=== PATIENT | female | born 1970 | race Hispanic/Latino ===

== ENCOUNTER 2016-10-24 20:41 | Emergency (ER) | payer SELFPAY ==
[2016-10-24 21:24] VITALS: BP 150/103
[2016-10-24 21:25] LABS: Basophils % (Auto) 0.8 % (0.0-1.8); Eosinophils % (Auto) 2.4 % (0.0-4.3); Hematocrit 43.3 % (30.3-42.9); Hemoglobin 14.7 gm/dl (10.1-14.3); Mean Corpuscular HGB Conc 34 % (30-34); Mean Corpuscular Hemoglobin 31 pg (28-32); Mean Corpuscular Volume 91 fl (79-97); Platelet Count 243 K/mm3 (140-440); Red Blood Count 4.74 M/mm3 (3.65-5.03); Red Cell Distribution Width 13.1 % (13.2-15.2); White Blood Count 8.6 K/mm3 (4.5-11.0)
[2016-10-24 21:33] LABS: Bacteria,Urine 1+ /HPF (Negative); Bilirubin,Urine NEG (Negative); Blood,Urine NEG (Negative); Ketones,Urine NEG (Negative); Leukocyte Esterase,Urine TR (Negative); Mucus,Urine 3+ /HPF; Nitrite,Urine NEG (Negative)
[2016-10-24 21:47] LABS: Anion Gap 18 mmol/L; BUN/Creatinine Ratio 14.44; Blood Urea Nitrogen 13 mg/dL (7-17); Calcium 9.6 mg/dL (8.4-10.2); Carbon Dioxide 25 mmol/L (22-30); Chloride 100.3 mmol/L (98-107); Glucose 104 mg/dL (65-100); Potassium 4.3 mmol/L (3.6-5.0); Sodium 139 mmol/L (137-145)
--- NOTE | 2016-10-25 07:52 | XRay Report ---
ROUTINE CHEST, TWO VIEWS: HISTORY: Shortness of breath. The trachea, heart, mediastinal contour, lung merchant and bony thorax are unremarkable. IMPRESSION: Unremarkable chest x-ray.
== END 2016-10-24 23:00 | disposition left against medical advice (07) ==
LOC: ED 20:41
DX: R07.9 Chest pain, unspecified (principal); R06.02 Shortness of breath; Z53.21 Procedure and treatment not carried out due to patient leaving prior to being seen by health care provider
CPT/HCPCS: 36415; 71020; 80048; 81001; 84484; 84703; 85025; 93005; 93010

== ENCOUNTER 2016-11-14 02:55 | Emergency (ER) | payer MEDICAID ==
[2016-11-14] MEDS ORDERED: FLEXERIL PO ONE (06:21)
[2016-11-14] MEDS ORDERED: TORADOL IM ONE (06:22)
--- NOTE | 2016-11-14 06:26 | Emergency Department Report ---
HPI - General Chief Complaint: Extremity Injury, Lower Time Seen by Provider: 11/14/16 06:08 - HPI HPI: She is a 46-year-old female with a history of hypertension on controlled with medication who presents to ED complaining of left foot pain and swelling 2 days. Patient states she did not have any traumatic injury to her foot. Patient states she has a history of arthritis. She describes them as throbbing, aching type pain localized to left foot. She denies injuries, bleeding, loss of sensation,, chest pain, shortness of breath, calf pain ED Past Medical Hx - Past Medical History Previous Medical History?: Yes Hx Hypertension: Yes Hx Psychiatric Treatment: Yes (Bipolar) Additional medical history: IBS, Hyperthyroid, RA. Obesity - Surgical History Past Surgical History?: Yes Hx Cholecystectomy: Yes Hx Appendectomy: Yes Additional Surgical History: Hyst - Social History Smoking Status: Never Smoker Substance Use Type: None - Medications Home Medications: Home Medications Medication Instructions Recorded Confirmed Last Taken Type Cyclobenzaprine [Flexeril 10 MG 10 mg PO QHS #20 tablet 11/14/16 Unknown Rx TAB] Diclofenac Dr [Jerod Guzman] 75 mg PO BID #30 tablet 11/14/16 Unknown Rx ED Review of Systems ROS: Stated complaint: LT KNEE SWELLING W/PAIN Other details as noted in HPI Constitutional: denies: chills, fever Eyes: denies: eye pain, eye discharge, vision change ENT: denies: ear pain, throat pain Respiratory: denies: cough, shortness of breath, wheezing Cardiovascular: denies: chest pain, palpitations Endocrine: no symptoms reported Gastrointestinal: denies: abdominal pain, nausea, diarrhea Genitourinary: denies: urgency, dysuria, discharge Musculoskeletal: arthralgia. denies: back pain, joint swelling Skin: denies: rash, lesions Neurological: denies: headache, weakness, numbness, paresthesias, confusion, abnormal gait Psychiatric: denies: anxiety, depression Hematological/Lymphatic: denies: easy bleeding, easy bruising Physical Exam - Physical Exam Vital Signs: Vital Signs 11/14/16 03:01 Temperature 97.3 F L Pulse Rate 80 Respiratory 22 Rate Blood Pressure 163/101 Blood Pressure 163/101 [Right] O2 Sat by Pulse 99 Oximetry Physical Exam: GENERAL: Alert and oriented x3, no apparent distress, Normal Gait with a walker , atraumatic. HEAD: Head is normocephalic and a-traumatic. EYES: Extra ocular muscles are intact. Pupils are equal, round, and reactive to light and accommodation. LUNGS: Symetrical with respiration, No wheezing, no rales or crackles, CTAB. HEART: S1, S2 present, regular rate and rhythm without murmur, no rubs, no gallops. Non tender to palpation EXTREMITIES/MUSCULOSKELETAL: No cyanosis, clubbing, rash, lesions or edema. Full ROM bilaterally. UE/LE Pulses 2+ bilaterally. LE and UE 5+ strength bilaterally, straight leg raise negative bilaterally. Carleen sign Negative bilaterally, nontender to palpation NEUROLOGIC: The patient is cooperative with no focal neurologic deficits. Cranial nerves II through XII are grossly intact. Normal speech. Normal sensation in bilateral lower extremities, No loss of sensation, SKIN: Warm and dry, No lesions, No ulceration or induration present. ED Course Vital Signs 11/14/16 03:01 Temperature 97.3 F L Pulse Rate 80 Respiratory 22 Rate Blood Pressure 163/101 Blood Pressure 163/101 [Right] O2 Sat by Pulse 99 Oximetry ED Medical Decision Making - Medical Decision Making 46-year-old female presents with foot arthralgia ED course: Patient received Flexeril and Toradol and ED. Discussed patient to rest foot for the next couple of days. Discussed elevation 3 times a day. Discussed a follow-up with primary care physician Patient states she just moved back here from [place] and would like referrals. Referrals were given to patient Blood pressure reduced prior to discharge. Patient is sleeping comfortably in her bed with no distress or discomfort. Vital signs are normal. Patient understands instructions given Discussed the patient is symptoms worsen or new symptoms arise to return to the ED Critical care attestation.: If time is entered above; I have spent that time in minutes in the direct care of this critically ill patient, excluding procedure time. ED Disposition Clinical Impression: Arthralgia of foot, left Disposition: DC-01 TO HOME OR SELFCARE Is pt being admited?: No Does the pt Need Aspirin: No Condition: Stable Instructions: Rheumatoid Arthritis (ED), Arthralgia (ED) Prescriptions: Cyclobenzaprine [Flexeril 10 MG TAB] 10 mg PO QHS #20 tablet Diclofenac [Jerod Guzman] 75 mg PO BID #30 tablet Referrals: PRIMARY CARE, [Primary Care Provider] - 3-5 Days [facility] [Outside] - 3-5 Days [facility] [Outside] - 3-5 Days LUKE ROY MD [Staff Physician] - 3-5 Days NEVAEH GROSS MD [Referring] - 3-5 Days CHELA KAUFMAN MD [Referring] - 3-5 Days Forms: Accompanied Note, Work/School Release Form(ED) Time of Disposition: 07:07
[2016-11-14 07:16] VITALS: BP 152/89
== END 2016-11-14 07:16 | disposition home or self-care (01) ==
LOC: ED 02:55
DX: M79.672 Pain in left foot (principal); M79.89 Other specified soft tissue disorders; I10 Essential (primary) hypertension; E05.90 Thyrotoxicosis, unspecified without thyrotoxic crisis or storm
CPT/HCPCS: 96372; 99282; J1885

== ENCOUNTER 2016-11-25 16:05 | Emergency (ER) | payer MEDICAID ==
[2016-11-25 17:35] LABS: Hematocrit 40.7 % (30.3-42.9); Hemoglobin 13.9 gm/dl (10.1-14.3); Mean Corpuscular HGB Conc 34 % (30-34); Mean Corpuscular Hemoglobin 31 pg (28-32); Mean Corpuscular Volume 91 fl (79-97); Platelet Count 227 K/mm3 (140-440); Red Blood Count 4.46 M/mm3 (3.65-5.03); Red Cell Distribution Width 13.2 % (13.2-15.2); White Blood Count 7.8 K/mm3 (4.5-11.0)
[2016-11-25 17:46] LABS: Alanine Aminotransferase 40 units/L (7-56); Albumin 4.1 g/dL (3.9-5); Albumin/Globulin Ratio 1.3 %; Alkaline Phosphatase 68 units/L (35-129); Anion Gap 17 mmol/L; BUN/Creatinine Ratio 18.57; Blood Urea Nitrogen 13 mg/dL (7-17); Calcium 9.6 mg/dL (8.4-10.2); Carbon Dioxide 26 mmol/L (22-30); Chloride 102.5 mmol/L (98-107); Glucose 76 mg/dL (65-100); Potassium 4.9 mmol/L (3.6-5.0); Sodium 141 mmol/L (137-145); Total Protein 7.3 g/dL (6.3-8.2)
[2016-11-25 17:56] LABS: Urine Drugs of Abuse Note Disclamer
[2016-11-25 18:04] LABS: Bilirubin,Urine NEG (Negative); Blood,Urine NEG (Negative); Ketones,Urine NEG (Negative); Leukocyte Esterase,Urine NEG (Negative); Nitrite,Urine NEG (Negative); Protein,Urine <15 mg/dL mg/dL (Negative); Urobilinogen,Urine < 2.0 mg/dL (<2.0); WBC,Urine < 1.0 /HPF (0.0-6.0)
--- NOTE | 2016-11-25 19:09 | Emergency Department Report ---
History of Present Illness - General Chief Complaint: Overdose Stated Complaint: POSS OVERDOSE Time Seen by Provider: 11/25/16 18:40 Source: patient Mode of arrival: Ambulatory Limitations: No Limitations - History of Present Illness Initial Comments: 46-year-old female with a past history of hypertension, bipolar, IBS, hypothyroidism, obesity, rheumatoid arthritis and previous appendectomy, cholecystectomy, and hysterectomy presents to the hospital complains of suicidal ideation with attempt prior to arrival. Patient took an excessive amount prescribed temazepam 15 mg. Patient is unsure of how many tablets she took total but thinks at least 8 tablets were taken between 2 PM at 3:45 PM. Patient's intention was to kill herself in order to stop that emotional and physical pain. Patient has chronic bilateral knee pain left greater than right and states that she needs a knee replacement she can't afford. Patient denies hallucinations or homicidal ideation. Patient takes other psychiatric medication. Suicide attempt with at age 17. Patient states she is not on all her bipolar medication. - Related Data Previous Rx's Medication Instructions Recorded Last Taken Type Cyclobenzaprine [Flexeril 10 MG 10 mg PO QHS #20 tablet 11/14/16 Unknown Rx TAB] Diclofenac Dr [Jerod Guzman] 75 mg PO BID #30 tablet 11/14/16 Unknown Rx Allergies Allergy/AdvReac Type Severity Reaction Status Date / Time chloroxylenol Allergy Rash Verified 10/24/16 20:59 [From Perigiene] latex Allergy Angioedema Verified 11/25/16 16:34 phenazopyridine HCl Allergy Unknown Verified 11/25/16 16:34 [From Pyridium] tomato Allergy Rash Verified 10/24/16 20:59 ED Review of Systems ROS: Stated complaint: POSS OVERDOSE Other details as noted in HPI Comment: All other systems reviewed and negative Other: General: No fever or chills Eyes: No blurry vision or discharge HEENT: No throat pain Neck: No pain Respiratory: No shortness of breath, wheezing, or coughing Cardiovascular: No chest pain, palpitations, or syncope GI: No abdominal pain, nausea, vomiting, diarrhea, melena, or hematochezia : No dysuria or increased frequency Musculoskeletal: No back pain, no joint swelling Neurologic: Denies headache, focal weakness, or focal numbness Psychiatric: As per HPI Skin: No rash or lesions ED Past Medical Hx - Past Medical History Hx Hypertension: Yes Hx Psychiatric Treatment: Yes (Bipolar) Additional medical history: IBS, Hyperthyroid, RA. Obesity - Surgical History Hx Cholecystectomy: Yes Hx Appendectomy: Yes Additional Surgical History: Hyst - Social History Smoking Status: Current Every Day Smoker Substance Use Type: Marijuana - Medications Home Medications: Home Medications Medication Instructions Recorded Confirmed Last Taken Type Cyclobenzaprine [Flexeril 10 MG 10 mg PO QHS #20 tablet 11/14/16 11/25/16 Unknown Rx TAB] Diclofenac Dr [Voltaren Dr] 75 mg PO BID #30 tablet 11/14/16 11/25/16 Unknown Rx ED Physical Exam - General Limitations: No Limitations - Other Other exam information: General: No acute distress, Head: Atraumatic, normocephalic Eyes: Normal appearance, pupils equal and reactive to light HEENT: Moist mucous membranes, normal oropharynx Neck: Full range of motion, normal inspection, no midline tenderness CV: Regular rate and rhythm Respiratory: Clear to auscultation, no wheezes, rales, or crackles Abdomen: Soft, nondistended, nontender, normal bowel sounds, no rebound or guarding Extremities: Full range of motion, no deformity Back: Normal inspection, nontender, full range of motion Neurologic: Alert and oriented 3, cranial nerves grossly intact, no motor or sensory deficit Skin: No rash Psychiatric: Depressed affect ED Course Vital Signs 11/25/16 11/25/16 16:22 18:22 Temperature 97.5 F L 98.3 F Pulse Rate 86 93 H Respiratory 18 16 Rate Blood Pressure 147/92 Blood Pressure 99/62 [Left] O2 Sat by Pulse 97 97 Oximetry - Consultations Consultation #1: 11/25/16 19:08 I recontacted to control for clarification of recommended observation period. They suggested observation for 4-6 hours as required for medical clearance. Not 48 hours as initially documented by triage nurse. ED Medical Decision Making - Lab Data Result diagrams: 11/25/16 16:56 11/25/16 16:56 Lab Results 11/25/16 11/25/16 11/25/16 Range/Units 16:50 16:50 16:56 WBC 7.8 (4.5-11.0) K/mm3 RBC 4.46 (3.65-5.03) M/mm3 Hgb 13.9 (10.1-14.3) gm/dl Hct 40.7 (30.3-42.9) % MCV 91 (79-97) fl MCH 31 (28-32) pg MCHC 34 (30-34) % RDW 13.2 (13.2-15.2) % Plt Count 227 (140-440) K/mm3 Sodium (137-145) mmol/L Potassium (3.6-5.0) mmol/L Chloride (98-107) mmol/L Carbon Dioxide (22-30) mmol/L Anion Gap mmol/L BUN (7-17) mg/dL Creatinine (0.7-1.2) mg/dL Estimated GFR ml/min BUN/Creatinine Ratio % Glucose (65-100) mg/dL Calcium (8.4-10.2) mg/dL Total Bilirubin (0.1-1.2) mg/dL AST (5-40) units/L ALT (7-56) units/L Alkaline Phosphatase (35-129) units/L Troponin T (0.00-0.029) ng/mL Total Protein (6.3-8.2) g/dL Albumin (3.9-5) g/dL Albumin/Globulin Ratio % Urine Color Yellow (Yellow) Urine Turbidity Clear (Clear) Urine pH 5.0 (5.0-7.0) Ur Specific [place] 1.010 (1.003-1.030) Urine Protein <15 mg/dl (Negative) mg/dL Urine Glucose (UA) Neg (Negative) mg/dL Urine Ketones Neg (Negative) mg/dL Urine Blood Neg (Negative) Urine Nitrite Neg (Negative) Urine Bilirubin Neg (Negative) Urine Urobilinogen < 2.0 (<2.0) mg/dL Ur Leukocyte Esterase Neg (Negative) Urine WBC (Auto) < 1.0 (0.0-6.0) /HPF Urine RBC (Auto) 1.0 (0.0-6.0) /HPF U Epithel Cells (Auto) 2.0 (0-13.0) /HPF Salicylates (2.8-20.0) mg/dL Urine Opiates Screen Presumptive negative Urine Methadone Screen Presumptive negative Acetaminophen (10.0-30.0) ug/mL Ur Barbiturates Screen Presumptive negative Ur Phencyclidine Scrn Presumptive negative Ur Amphetamines Screen Presumptive negative U Benzodiazepines Scrn Presumptive negative Urine Cocaine Screen Presumptive negative U Marijuana (THC) Screen Presumptive negative Drugs of Abuse Note Disclamer Plasma/Serum Alcohol (0-0.07) gm% 11/25/16 11/25/16 11/25/16 Range/Units 16:56 16:56 16:56 WBC (4.5-11.0) K/mm3 RBC (3.65-5.03) M/mm3 Hgb (10.1-14.3) gm/dl Hct (30.3-42.9) % MCV (79-97) fl MCH (28-32) pg MCHC (30-34) % RDW (13.2-15.2) % Plt Count (140-440) K/mm3 Sodium 141 (137-145) mmol/L Potassium 4.9 (3.6-5.0) mmol/L Chloride 102.5 (98-107) mmol/L Carbon Dioxide 26 (22-30) mmol/L Anion Gap 17 mmol/L BUN 13 (7-17) mg/dL Creatinine 0.7 (0.7-1.2) mg/dL Estimated GFR > 60 ml/min BUN/Creatinine Ratio 18.57 % Glucose 76 (65-100) mg/dL Calcium 9.6 (8.4-10.2) mg/dL Total Bilirubin 0.80 (0.1-1.2) mg/dL AST 26 (5-40) units/L ALT 40 (7-56) units/L Alkaline Phosphatase 68 (35-129) units/L Troponin T (0.00-0.029) ng/mL Total Protein 7.3 (6.3-8.2) g/dL Albumin 4.1 (3.9-5) g/dL Albumin/Globulin Ratio 1.3 % Urine Color (Yellow) Urine Turbidity (Clear) Urine pH (5.0-7.0) Ur Specific [place] (1.003-1.030) Urine Protein (Negative) mg/dL Urine Glucose (UA) (Negative) mg/dL Urine Ketones (Negative) mg/dL Urine Blood (Negative) Urine Nitrite (Negative) Urine Bilirubin (Negative) Urine Urobilinogen (<2.0) mg/dL Ur Leukocyte Esterase (Negative) Urine WBC (Auto) (0.0-6.0) /HPF Urine RBC (Auto) (0.0-6.0) /HPF U Epithel Cells (Auto) (0-13.0) /HPF Salicylates < 0.3 L (2.8-20.0) mg/dL Urine Opiates Screen Urine Methadone Screen Acetaminophen (10.0-30.0) ug/mL Ur Barbiturates Screen Ur Phencyclidine Scrn Ur Amphetamines Screen U Benzodiazepines Scrn Urine Cocaine Screen U Marijuana (THC) Screen Drugs of Abuse Note Plasma/Serum Alcohol < 0.01 (0-0.07) gm% 11/25/16 11/25/16 Range/Units 16:56 16:56 WBC (4.5-11.0) K/mm3 RBC (3.65-5.03) M/mm3 Hgb (10.1-14.3) gm/dl Hct (30.3-42.9) % MCV (79-97) fl MCH (28-32) pg MCHC (30-34) % RDW (13.2-15.2) % Plt Count (140-440) K/mm3 Sodium (137-145) mmol/L Potassium (3.6-5.0) mmol/L Chloride (98-107) mmol/L Carbon Dioxide (22-30) mmol/L Anion Gap mmol/L BUN (7-17) mg/dL Creatinine (0.7-1.2) mg/dL Estimated GFR ml/min BUN/Creatinine Ratio % Glucose (65-100) mg/dL Calcium (8.4-10.2) mg/dL Total Bilirubin (0.1-1.2) mg/dL AST (5-40) units/L ALT (7-56) units/L Alkaline Phosphatase (35-129) units/L Troponin T < 0.010 (0.00-0.029) ng/mL Total Protein (6.3-8.2) g/dL Albumin (3.9-5) g/dL Albumin/Globulin Ratio % Urine Color (Yellow) Urine Turbidity (Clear) Urine pH (5.0-7.0) Ur Specific [place] (1.003-1.030) Urine Protein (Negative) mg/dL Urine Glucose (UA) (Negative) mg/dL Urine Ketones (Negative) mg/dL Urine Blood (Negative) Urine Nitrite (Negative) Urine Bilirubin (Negative) Urine Urobilinogen (<2.0) mg/dL Ur Leukocyte Esterase (Negative) Urine WBC (Auto) (0.0-6.0) /HPF Urine RBC (Auto) (0.0-6.0) /HPF U Epithel Cells (Auto) (0-13.0) /HPF Salicylates (2.8-20.0) mg/dL Urine Opiates Screen Urine Methadone Screen Acetaminophen < 15.0 (10.0-30.0) ug/mL Ur Barbiturates Screen Ur Phencyclidine Scrn Ur Amphetamines Screen U Benzodiazepines Scrn Urine Cocaine Screen U Marijuana (THC) Screen Drugs of Abuse Note Plasma/Serum Alcohol (0-0.07) gm% - EKG Data -: EKG Interpreted by Me (sinus rhythm rate 89 to elevation or T-wave abnormalities) - EKG Data When compared to previous EKG there are: no significant change (compared to ) - Medical Decision Making 1013 and transfer form signed. Patient remained alert and oriented to her ED stay. Medically cleared for inpatient psychiatric treatment - Differential Diagnosis depression, suicidal attempts Critical Care Time: No Critical care attestation.: If time is entered above; I have spent that time in minutes in the direct care of this critically ill patient, excluding procedure time. ED Disposition Clinical Impression: Suicide attempt by drug ingestion, Depression, Medical clearance for psychiatric admission Disposition: DC/TX-65 PSY HOSP/PSY UNIT Is pt being admited?: No Condition: Stable Time of Disposition: 21:51 (awaiting acceptance)
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
[2016-11-26] MEDS: GEODON PO SCH (21:34)
[2016-11-26] MEDS: LaMICtal PO SCH ×2 (21:34)
[2016-11-26] MEDS: PAXIL PO SCH (22:35)
[2016-11-27] MEDS: GEODON PO SCH ×2 (11:06→22:49)
--- NOTE | 2016-11-27 11:44 | Progress Note ---
Subjective - Reason for Consult Consult date: 11/27/16 Reason for consult: Psychiatry Follow-up - Chief Complaint Chief complaint: "I needed sleep" 46-year-old female seen in the ER for psychiatric evaluation. Reportedly, the patient took an excessive amount prescribed temazepam 15 mg. Today patient is calm and cooperative during assessment. She stated being "tired and sleepy" when she took the Temazepam pills. She stated that she took at least 4 pills over 4 hours. She believes that her aunt overacted when she explained to her what she had done. The patient did admit to previous suicide attempt years ago as a young adult. She stated that she uses coping skills to deal with stressors. She is adamant that she was not trying to kill herself before her admission to [facility]. She denies SI/HI's, AVH's, and depression. She denies any rashes at this time (Lamictal). Mental Status Exam - Vital signs Last Vital Signs Temp 98.2 F 11/26/16 22:00 Pulse 87 11/26/16 22:00 Resp 20 11/27/16 08:37 BP 116/79 11/26/16 22:00 Pulse Ox 98 11/27/16 08:37 - Exam Narrative exam: MSE: Appearance: calm, cooperative Behavior: regular eye contact Speech: regular rate and tone Mood: "I am okay" Affect: congruent Thought Process: linear Thought Content: denies SI/HI's and AVH's Motor Activity: ambulatory Cognition: A/Ox 3 Insight: fair Judgment: fair Assessment and Plan Impression: Historical Dx: Bipolar/Depression. Today patient is calm and cooperative during assessment. She denies SI/HI's. Recommendation/Plan: Continue 1013. Gather collateral information to determine proper dispo. Continue home medications: Geodon 40mg bid, Paxil 20mg daily, and Lamictal 150mg daily (last dose 2 days ago)- educated on risk of Laureano Rudy Syndrome. Discussed possible metabolic side effects of Geodon with patient. Also discussed the possible suicidality/medication induced sigifredo with patient reference Paxil.
[2016-11-27] MEDS: LaMICtal PO SCH ×2 (22:49)
[2016-11-27] MEDS: PAXIL PO SCH (22:50)
[2016-11-28] MEDS: GEODON PO SCH (10:30)
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
[2016-11-28 14:14] VITALS: BP 138/86
--- NOTE | 2016-11-28 20:53 | Emergency Department Report ---
Blank Doc - Documentation Documentation: Examination patient had no evidence of suicidal ideation patient is alert oriented 3. Evaluated by mental health's dictated determined that the patient is not suicidal and patient can be safely discharged home and patient is able to contract for safety.
== END 2016-11-28 21:00 ==
LOC: ED 16:05 → EEVIPCON 16:05 → ED 11-28 21:00
DX: T42.4X2A Poisoning by benzodiazepines, intentional self-harm, initial encounter (principal); I10 Essential (primary) hypertension; F31.9 Bipolar disorder, unspecified; K58.9 Irritable bowel syndrome, unspecified; E66.9 Obesity, unspecified; F12.90 Cannabis use, unspecified, uncomplicated; F17.200 Nicotine dependence, unspecified, uncomplicated; Z91.018 Allergy to other foods; Z91.040 Latex allergy status; Z88.8 Allergy status to other drugs, medicaments and biological substances; Y92.89 Other specified places as the place of occurrence of the external cause
CPT/HCPCS: 36415; 80053; 80307; 81001; 84484; 85027; 93005; 93010; 99285; G0480; 80320

== ENCOUNTER 2020-06-02 15:19 | Emergency (ER) | payer MEDICAID ==
--- NOTE | 2020-06-02 15:31 | Emergency Department Report ---
Blank Doc - Documentation Documentation: 49-year-old female that presents with left-sided chest pain with radiation to the arm and shortness of breath. History of CHF and MO. 1- This initial assessment/diagnostic orders/clinical plan/ treatment(s) is/are subject to change based on pt's health status, clinical progression and re- assessment by fellow clinical providers in the ED. Further treatment and workup at subsequent clinical provers discretion. Patient/guardians urged not to elope from ED as their condition may be serious if not clinically assessed and managed. 2-cardiac work-up
[2020-06-02 15:34] VITALS: BP 149/103
[2020-06-02 16:03] LABS: Basophils # (Auto) 0.1 K/mm3 (0.0-0.1); Basophils % (Auto) 0.8 % (0.0-1.8); Eosinophils # (Auto) 0.5 K/mm3 (0.0-0.4); Eosinophils % (Auto) 6.3 % (0.0-4.3); Hematocrit 42.5 % (30.3-42.9); Hemoglobin 14.6 gm/dl (10.1-14.3); Lymphocytes # (Auto) 1.6 K/mm3 (1.2-5.4); Mean Corpuscular HGB Conc 34 % (30-34); Mean Corpuscular Volume 96 fl (79-97); Monocytes # (Auto) 0.6 K/mm3 (0.0-0.8); Monocytes % (Auto) 8.2 % (0.0-7.3); Platelet Count 231 K/mm3 (140-440); Red Blood Count 4.43 M/mm3 (3.65-5.03); Red Cell Distribution Width 12.9 % (13.2-15.2)
[2020-06-02 16:12] LABS: INR 0.87 (0.87-1.13)
[2020-06-02 16:13] LABS: Partial Thromboplastin Time 29.6 Sec. (24.2-36.6)
[2020-06-02 16:28] LABS: Alanine Aminotransferase 11 units/L (7-56); Albumin 3.9 g/dL (3.9-5); Blood Urea Nitrogen 13 mg/dL (7-17); Calcium 9.5 mg/dL (8.4-10.2); Hemolysis Index 13
[2020-06-02 16:33] LABS: BUN/Creatinine Ratio 19
== END 2020-06-02 17:58 | disposition left against medical advice (07) ==
LOC: ED 15:19
DX: R06.02 Shortness of breath (principal); Z53.21 Procedure and treatment not carried out due to patient leaving prior to being seen by health care provider
CPT/HCPCS: 36415; 80053; 83735; 84484; 84703; 85025; 85610; 85730; 93005